=== PATIENT | female | born 1980 | race Caucasian/White ===

== ENCOUNTER 2022-08-18 09:57 | Outpatient (RCR) | payer BC ==
[2022-08-16 09:43] VITALS: BP 126/92
[2022-08-16 09:56] VITALS: BP 125/76
[2022-08-16] MEDS: VANCOMYCIN 1 GM/NS 250 ML IVPB IV SCH ×2 (10:44)
[2022-08-17] MEDS: cefTRIAXone INJ 2,000 MG in NS (IVPB) 50 ML IV SCH (10:05)
[2022-08-17 10:17] VITALS: BP 134/96
[2022-08-17] MEDS: VANCOMYCIN 1 GM/NS 250 ML IVPB IV SCH ×4 (10:34→22:02)
[2022-08-17 22:11] VITALS: BP 155/96
[2022-08-17 23:10] VITALS: BP 147/85
[~2022-08-18] VITALS: Ht 162 cm; Wt 68.0 kg
[~2022-08-18 09:57] MED LIST: PIPERACILLIN SODIUM/TAZOBACTAM 4.5 GM in NS (IVPB) 100 ML IV SCH; cefTRIAXone INJ 2,000 MG in NS (IVPB) 50 ML IV SCH
[2022-08-18] MEDS: cefTRIAXone INJ 2,000 MG in NS (IVPB) 50 ML IV SCH (10:11)
[2022-08-18] MEDS: VANCOMYCIN 1 GM/NS 250 ML IVPB IV SCH ×4 (10:32→22:21)
[2022-08-18 10:34] VITALS: BP 139/93
[2022-08-18 22:30] VITALS: BP 133/92
== END 2022-08-28 | disposition home or self-care (01) ==
LOC: SDC 09:57
PROVIDERS: ATTEND Family Medicine Sports Medicine
DX: Z45.2 Encounter for adjustment and management of vascular access device (principal)
CPT/HCPCS: 36410; 76937; 96365; 96368; C1751